=== PATIENT | male | born 1985 | race Caucasian/White ===

== ENCOUNTER 2017-03-13 20:31 | Emergency (ER) | payer SELFPAY ==
[2017-03-13] MEDS ORDERED: STERILE WATER IRRIGATION IR ONE (20:33)
[2017-03-13 20:36] VITALS: BMI 26.5
[2017-03-13] MEDS ORDERED: LR 1000 ML IV 1,000 ML IV ONE (20:41)
[2017-03-13] MEDS ORDERED: MORPHINE SULFATE INJ 4 MG ONE (20:41)
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
[2017-03-13] MEDS ORDERED: MORPHINE SULFATE INJ 4 MG IVP ONE (20:49)
[2017-03-13] MEDS ORDERED: SILVADENE TOP ONE (21:02)
[2017-03-13] MEDS ORDERED: SILVADENE ONE (21:05)
[2017-03-13] MEDS ORDERED: NORCO 7.5/325 MG TAB PO ONE (21:31)
[2017-03-13] MEDS ORDERED: NORCO 7.5/325 MG TAB ONE (21:33)
[2017-03-13 21:50] VITALS: BP 129/76
== END 2017-03-13 21:47 | disposition home or self-care (01) ==
LOC: ER 20:40
PROC: 2W2EX4Z Dressing of Right Hand using Bandage (ICD-10-PCS; principal; 2017-03-13)
DX: T23.301A Burn of third degree of right hand, unspecified site, initial encounter (principal); X12.XXXA Contact with other hot fluids, initial encounter
CPT/HCPCS: 16020; 96365; 96374; 99282; 99283; A4217; J2270; J7120